=== PATIENT | male | born 1945 | race Caucasian/White ===

== ENCOUNTER 2020-08-16 09:59 | Day surgery (SDC) | payer MEDICARE, BC ==
--- NOTE | 2020-08-16 08:14 | PCM.PREANE ---
Preanesthetic Assessment - Anesthesia/Transfusion/Family Hx Anesthesia History: Prior Anesthesia Without Reaction Family History of Anesthesia Reaction: No Transfusion History: No Prior Transfusion(s) Intubation History: Unknown - Review of Systems General: Weakness Pulmonary: No Symptoms Cardiovascular: Palpitations Gastrointestinal: Abdominal Pain, Decreased Appetite, Other (dysphagia) Neurological: No Symptoms Other: Reports: None - Physical Assessment NPO Status Date: 08/16/20 NPO Status Time: 00:00 Height: 5 ft 8 in Weight: 183 lb ASA Class: 3 Mental Status: Alert & Oriented x3 Airway Class: Mallampati = 2 Dentition: Reports: Normal Dentition Thyro-Mental Finger Breadths: 3 Mouth Opening Finger Breadths: 3 ROM/Head Extension: Full Lungs: Clear to Auscultation, Normal Respiratory Effort Cardiovascular: Regular Rate, Regular Rhythm - Allergies Allergies/Adverse Reactions: Allergies Allergy/AdvReac Type Severity Reaction Status Date / Time amoxicillin [From Augmentin] Allergy Rash Verified 08/15/20 15:29 azithromycin [From Zithromax] Allergy Cannot Verified 08/15/20 15:29 Remember cefuroxime [From Ceftin] Allergy Cannot Verified 08/15/20 15:29 Remember Cephalosporins Allergy Cannot Verified 08/15/20 15:29 Remember clavulanic acid Allergy Rash Verified 08/15/20 15:29 [From Augmentin] Iodine and Iodide Containing Allergy Nausea and Verified 08/15/20 15:29 Produc Vomiting Penicillins Allergy Cannot Verified 08/15/20 15:29 Remember bee stings Allergy Swelling Uncoded 08/15/20 15:29 - Blood Blood Available: No - Acknowledgements Anesthesia Type Planned: General Anesthesia Pt an Appropriate Candidate for the Planned Anesthesia: Yes Alternatives and Risks of Anesthesia Discussed w Pt/Guardian: Yes Pt/Guardian Understands and Agrees with Anesthesia Plan: Yes PreAnesthesia Questionnaire HEENT History: Reports: Allergic Rhinitis, Cataract, Glaucoma, Other (See Below) Other HEENT History: wears glasses, recent earaches Cardiovascular History: Reports: Arrhythmia, High Cholesterol, Hypertension, Other (See Below) Other Cardiovascular History: has Cardiac Ablation for tachycardia Respiratory History: Reports: None Gastrointestinal History: Reports: GERD, Hemorrhoids, Hiatal Hernia, PUD Other Gastrointestinal History: dysphagia Genitourinary History: Reports: None Musculoskeletal History: Reports: Arthritis, Gout Neurological History: Reports: Headaches, Chronic, Other (See Below) Other Neuro History: headaches from possible sinus congestion, Claustrophobic Psychiatric History: Reports: Anxiety Endocrine/Metabolic History: Reports: Diabetes, Type II Hematologic History: Reports: None Immunologic History: Reports: None Oncologic (Cancer) History: Reports: Basal Cell Carcinoma Other Oncologic History: removed from neck Dermatologic History: Reports: None - Past Surgical History Head Surgeries/Procedures: Reports: None HEENT Surgical History: Reports: Cataract Surgery, Tonsillectomy Cardiovascular Surgical History: Reports: None Respiratory Surgical History: Reports: None GI Surgical History: Reports: Colonoscopy, EGD Male Surgical History: Reports: None Endocrine Surgical History: Reports: None Neurological Surgical History: Reports: None Musculoskeletal Surgical History: Reports: None Dermatological Surgical History: Reports: Skin Biopsy - SUBSTANCE USE Tobacco Use Status *Q: Never Tobacco User Tobacco Use Within Last Twelve Months: No Recreational Drug Use History: No - HOME MEDS Home Medications: Home Meds Aspirin [[place] Aspirin EC] 81 mg PO DAILY 01/09/17 [History] Pioglitazone HCl 30 mg PO DAILY 01/09/17 [History] metFORMIN HCl [Metformin HCl] 1,000 mg PO BID 01/09/17 [History] Ascorbic Acid [Vitamin C] 100 mg PO DAILY 08/15/20 [History] Fluticasone Propionate [Flonase Allergy Relief] 1 spray NASBOTH DAILY 08/15/20 [History] LORazepam [Ativan] 1 mg PO BID PRN 08/15/20 [History] Latanoprost/Pf [Latanoprost 0.005% Eye Drop] 1 drop EYEBOTH BEDTIME 08/15/20 [History] Magnesium Oxide [Magnesium] 400 mg PO DAILY 08/15/20 [History] Mesalamine 2.4 gm PO DAILY 08/15/20 [History] Metoprolol Tartrate 25 mg PO BID 08/15/20 [History] Pantoprazole [ProTONIX] 40 mg PO BID 08/15/20 [History] Sucralfate 1 gm PO QID 08/15/20 [History] Timolol [Betimol] 1 drop EYEBOTH QAM 08/15/20 [History] Zolpidem Tartrate 10 mg PO BEDTIME PRN 08/15/20 [History] hydrOXYzine HCL [Hydroxyzine HCl] 25 mg PO QID PRN 08/15/20 [History] lisinopriL [Lisinopril] 20 mg PO QAM 08/15/20 [History] - CURRENT (IN HOUSE) MEDS Current Meds: Current Medications Lactated Ringer's (Ringers, Lactated) 1,000 mls @ 125 mls/hr IV ASDIRECTED NEO Sodium Chloride (Sodium Chloride 0.9% 10 Ml Syringe) 10 ml FLUSH ASDIRECTED PRN PRN Reason: Keep Vein Open Sodium Chloride (Sodium Chloride 0.9% 10 Ml Syringe) 10 ml FLUSH ASDIRECTED PRN PRN Reason: Keep Vein Open Sodium Chloride (Sodium Chloride 0.9% 2.5 Ml Syringe) 2.5 ml FLUSH ASDIRECTED PRN PRN Reason: Keep Vein Open Discontinued Medications Sodium Chloride (Sodium Chloride 0.9% 2.5 Ml Syringe) 2.5 ml FLUSH ASDIRECTED PRN PRN Reason: Keep Vein Open Sodium Chloride (Sodium Chloride 0.9% 10 Ml Sdv) 10 ml IV ASDIRECTED PRN PRN Reason: IV Use
[~2020-08-16 09:59] MED LIST: Glycopyrrolate 0.2 MG/ML SDV ONE; Lactated Ringers 1,000 ML IV SCH; Phenylephrine 1% 10 MG/ML SDV ONE; Propofol 200 MG/20 ML SDV ONE; Sodium Chloride 0.9% 10 ML SDV IV PRN; Sodium Chloride 0.9% 10 ML Syringe FLUSH PRN; Sodium Chloride 0.9% 2.5 ML Syringe FLUSH PRN
--- NOTE | 2020-08-16 11:47 | PCM.POSTAN ---
POST ANESTHESIA ASSESSMENT - MENTAL STATUS Mental Status: Alert, Oriented - VITAL SIGNS Vital Signs: Last Vital Signs Temp 97.7 F 08/16/20 11:40 Pulse 66 08/16/20 11:40 Resp 17 08/16/20 11:40 BP 124/57 L 08/16/20 11:40 Pulse Ox 95 08/16/20 11:40 - RESPIRATORY Respiratory Status: Respiratory Rate WNL, Airway Patent, O2 Saturation Stable - CARDIOVASCULAR CV Status: Pulse Rate WNL, Blood Pressure Stable - GASTROINTESTINAL GI Status: No Symptoms - POST OP HYDRATION Hydration Status: Adequate & Stable
--- NOTE | 2020-08-16 11:48 | PCM48HPAN ---
Post Anesthesia Note - EVALUATION WITHIN 48HRS OF ANESTHETIC Vital Signs in Normal Range: Yes Patient Participated in Evaluation: Yes Respiratory Function Stable: Yes Airway Patent: Yes Cardiovascular Function Stable: Yes Hydration Status Stable: Yes Pain Control Satisfactory: Yes Nausea and Vomiting Control Satisfactory: Yes Mental Status Recovered: Yes Vital Signs: Last Vital Signs Temp 97.7 F 08/16/20 11:40 Pulse 66 08/16/20 11:40 Resp 17 08/16/20 11:40 BP 124/57 L 08/16/20 11:40 Pulse Ox 95 08/16/20 11:40
[2020-08-16 12:48] VITALS: BP 143/67; PULSE 68
--- NOTE | 2020-08-16 12:58 | PCM.OPNOTE ---
- General Post-Op/Procedure Note Date of Surgery/Procedure: 08/16/20 Operative Procedure(s): Diagnostic EGD with biposy Findings: Mild gastritis in fundus, small hiatal hernia. No evidence of esophagitis Pre Op Diagnosis: Hiatal hernia, dysphagia Post-Op Diagnosis: Hiatal hernia, gastritis Anesthesia Technique: [facility] [place] Primary Surgeon: Lillie Villanueva Condition: Good Free Text/Narrative:: Intake & Output 08/15/20 08/16/20 08/16/20 22:59 06:59 14:59 Intake Total 200 Balance 200
--- NOTE | 2020-08-16 15:33 | OR ---
SURGEON: LILLIE VILLANUEVA MD DATE OF PROCEDURE: 08/16/2020 PREOPERATIVE DIAGNOSES: 1. Dysphagia. 2. Hiatal hernia. POSTOPERATIVE DIAGNOSES: 1. Dysphagia. 2. Hiatal hernia. 3. Gastritis. PROCEDURE PERFORMED: Diagnostic esophagogastroduodenoscopy with biopsy. PRIMARY SURGEON: Lillie Villanueva MD ANESTHESIA: MAC. INSTRUMENT USED: Olympus endoscope. EXTENT OF THE EXAMINATION: To the second portion of the duodenum. PREPARATION: Good. LIMITATIONS: None. INDICATIONS FOR EXAMINATION: The patient is a 75-year-old male who presents with worsening heartburn symptoms and progressively worsening dysphagia. He underwent an esophagram which showed a small sliding hiatal hernia with no evidence of reflux or esophageal dysmotility. The decision was made to proceed with diagnostic EGD. I explained the procedure, expected perioperative course, and the risks. He verbalized understanding and wishes to proceed. PROCEDURE IN DETAIL: The patient was brought in to the endoscopy suite and placed in a left lateral decubitus position. A time-out was completed verifying the patient's name, age, date of , allergies, and procedure to be performed. Monitored anesthesia care was induced and continuous oxygen was provided via face mask throughout the procedure. A bite block was placed in the patient's mouth. After adequate sedation was achieved, a well-lubricated endoscope was placed in the patient's mouth and advanced under direct visualization to the second portion of duodenum. This appeared normal and a photograph was taken. The scope was then fully withdrawn while examining the color, texture, anatomy, and integrity mucosa of the upper GI tract. The duodenum all appeared normal and a photograph of this was taken. The scope was then brought into the stomach and a photograph was taken of the pylorus and GE junction. The patient was noted to have a very small hiatal hernia. On inspection, the patient did have some mild gastritis in the fundus of the stomach. Biopsies were taken of the gastric antrum, body, and fundus and sent for histologic review and H pylori testing. The scope was then brought into the distal esophagus. A photograph was taken of the hiatal hernia sac as well as the Z-line. The Z-line did not appear grossly abnormal and there were no signs of any distal esophagitis. There was no evidence of a stricture or a lesion in the esophagus itself. A biopsy was taken 1 cm above the Z-line and sent to Pathology, labeled as esophageal biopsy. The remainder of the esophagus was free of pathology. The scope was removed and this portion of the procedure terminated. The patient tolerated the procedure well and was taken to PACU in stable condition. ENDOSCOPIC DIAGNOSES: 1. Dysphagia. 2. Hiatal hernia. 3. Gastritis. RECOMMENDATIONS: The patient is currently on b.i.d. PPIs and has sucralfate available at home. I will follow up on the biopsy results. Likely, the patient will need further testing with a hot pipe gauger to determine the cause of his reflux symptoms and dysphagia. JAIMEE SANCHEZ /[id number]
== END 2020-08-16 12:25 | disposition home or self-care (01) ==
LOC: MW.SDS 09:59
PROVIDERS: ATTEND Surgery
DX: K29.70 Gastritis, unspecified, without bleeding (principal); K44.9 Diaphragmatic hernia without obstruction or gangrene; I10 Essential (primary) hypertension; E78.00 Pure hypercholesterolemia, unspecified; E11.9 Type 2 diabetes mellitus without complications; Z88.0 Allergy status to penicillin; Z88.8 Allergy status to other drugs, medicaments and biological substances; Z91.041 Radiographic dye allergy status; Z88.1 Allergy status to other antibiotic agents; Z91.030 Bee allergy status; Z79.82 Long term (current) use of aspirin; Z79.84 Long term (current) use of oral hypoglycemic drugs; Z79.899 Other long term (current) drug therapy
CPT/HCPCS: 43239; 82947; 88305; 88342; J2370; J2704; J3490; J7120; 00731; 99100